=== PATIENT | male | born 1980 | race Caucasian/White ===

== ENCOUNTER 2019-10-03 16:37 | Inpatient (IN) ==
[2019-10-03] MEDS ORDERED: SODIUM CHLORIDE 0.9% 1000ML 1,000 ML IV SCH (17:00)
--- NOTE | 2019-10-03 17:05 | Emergency Department Note ---
Impression & Plan Intentional acetaminophen overdose, Hepatitis C, Drug overdose, Acetaminophen overdose, Transaminitis ED Provider Note NAME: DAVE [id number] JAMEL AGE: 39 SEX: M : 1980 ARRIVES VIA: Walk-In INFORMANT: Patient ED PROVIDER(S): Naga Rich DO CHIEF COMPLAINT: Overdose HPI: Patient is a 39-year-old male who presents the ER following intentional overdose of Tylenol. He notes that he took close to 100 tabs of 500 mg apiece at around 1:00 today. Patient notes that he wants to kill himself secondary to family issues as he notes it is coming up to his anniversary. He denies any other complaints at this time. No exacerbating or remitting factors. No pain at this time. Denies any headache, change in vision, chest pain, shortness of breath, nausea vomiting or diarrhea. No dysuria urgency or frequency. He notes he does have a history of hepatitis C and depression. ROS: See above HPI for pertinent positives & negatives. A total of 10 systems reviewed and were otherwise negative. PAST MEDICAL HISTORY:See Below PAST SURGICAL HISTORY:See Below FAMILY HISTORY:See Below SOCIAL HISTORY:See Below HOME MEDICATIONS:See Below ALLERGIES:See Below VITALS:See Below PHYSICAL EXAMINATION: GENERAL: Sitting up in bed, alert, well appearing, well nourished, no distress, non-toxic EYE EXAM: normal conjunctiva. OROPHARYNX: no exudate, no erythema, lips, buccal mucosa, and tongue normal and mucous membranes are moist NECK: supple, no nuchal rigidity, no adenopathy, non-tender LUNGS: Clear to auscultation. Normal chest wall mechanics HEART: no murmurs, S1 normal and S2 normal ABDOMEN: abdomen soft, non-tender, normo-active bowel sounds, no masses, no re bound or guarding. BACK: Back is symmetrical on inspection and there is no deformity, no midline te nderness, no CVA tenderness. SKIN: no rashes and no bruising UPPER EXTREMITIES: upper extremities are grossly normal. LOWER EXTREMITIES: No pitting edema. NEURO EXAM: Normal sensorium, cranial nerves II-XII grossly intact, normal speech, no gross weakness of arms, no gross weakness of legs. MEDICAL DECISION MAKING: Patient is a 39-year-old male who presents the ER for intentional overdose of Tylenol which occurred per him around 1 PM. IV established blood work was obtained. Labs show no significant leukocytosis or anemia. INR was unremarkable. BMP with a slightly low CO2 at 19. The Rubio was unremarkable. AST and ALT were elevated but actually improved from previous elevations. Lipase was unremarkable. Salicylate was negative. Acetaminophen was si gnificantly elevated at 394. This is a toxic level. [place] and alcohol were negative. Discussed with [place] poison control. Patient was given neck protocol. He did have some vomiting after admission while in the ER. He was given fluids and IV Zofran. There was some hematemesis. The admitting provider was notified. Patient was updated and admitted to the hospital for toxic Tylenol ingestion. Triage Nursing notes reviewed. Prior medical records reviewed Vital Signs: reviewed and remarkable for tachycardic Differential diagnosis: Overdose, toxicologic, infection, hypoglycemia, electrolyte abnormalities, cardiac sources, intracerebral event, neurologic, trauma, as well as other pathologies. ER treatment provided: See below Diagnostics interpreted by me: ECG: Sinus rhythm rate of 96 Left axis No PVCs Normal QTC Poor baseline Cardiac Monitoring: An order was placed for continuous cardiac monitoring. The monitor shows a rate of 98 with sinus rhythm. Laboratory studies: As stated above and show below. Imaging studies: Portable AP upright 1 view of the chest shows questionable groundglass opacities in the bilateral lung Consultation(s): Discussed with Dr. Howard Adames ED COURSE: Procedures: none Critical Care: I have personally spent 45 minutes of critical care time in the direct management of this patient. This includes bedside care, interpretation of diagnostic studies, and testing, discussion with consultants, patient, and family members, and other required patient management activities. This 45 minutes is in excess of all separately billable procedures. Past Med/Surg History Social History Preferred Language: Kyrgyz Current Living Situation: Other Current Living Situation Comment: Longterm Feels Safe at Home: Yes Smoking Status: Current every day smoker Hx Substance Use: No Allergies Allergies Allergy/AdvReac Type Severity Reaction Status Date / Time ceftriaxone [From Rocephin] Allergy Unknown Verified 10/03/19 18:58 Penicillins Allergy Unknown Verified 10/03/19 18:58 Sulfa (Sulfonamide Allergy Unknown Verified 10/03/19 18:58 Antibiotics) Home Meds Home Medications Medication Instructions Recorded Confirmed [place] Citrate 300mg/5ml 5 ml PO BID 10/03/19 10/03/19 duloxetine [Cymbalta] 30 mg PO HS 10/03/19 10/03/19 metoprolol tartrate 50 mg PO BID 10/03/19 10/03/19 olanzapine 15 mg PO HS 10/03/19 10/03/19 Results & Data (ED) Vital Signs Vital Signs - 24 hr 10/03/19 16:41 10/03/19 17:08 10/03/19 17:56 Temperature 36.9 C Temperature Source Oral Pulse Rate 99 H 98 H Pulse Rate [Apical] 91 H Pulse Rhythm Regular Respiratory Rate 18 18 Respiratory Effort / Characteristics Non-Labored Respiratory Depth Normal Blood Pressure 133/80 Blood Pressure [Right Arm] 119/73 Blood Pressure Mean 97 Blood Pressure Mean [Right Arm] 88 Pulse Oximetry 95 95 93 Oxygen Delivery Method Room Air Room Air Room Air Sepsis Recent Fever Within 48 Hours No Sepsis New/Unexplained Change in Mental Status No Sepsis Action Taken by Nursing No Action Required 10/03/19 18:30 10/03/19 19:12 Temperature Temperature Source Pulse Rate Pulse Rate [Apical] 102 H 87 Pulse Rhythm Respiratory Rate 20 18 Respiratory Effort / Characteristics Respiratory Depth Blood Pressure Blood Pressure [Right Arm] 121/75 124/75 Blood Pressure Mean Blood Pressure Mean [Right Arm] 90 91 Pulse Oximetry 95 95 Oxygen Delivery Method Room Air Room Air Sepsis Recent Fever Within 48 Hours Sepsis New/Unexplained Change in Mental Status Sepsis Action Taken by Nursing Laboratory Data Result diagrams: 10/03/19 17:31 10/03/19 17:31 Lab Results 10/03/19 10/03/19 10/03/19 Range/Units 17:31 17:31 17:31 WBC 10.24 (4.8-10.8) K/uL RBC 4.64 L (4.7-6.1) M/uL Hgb 15.2 (14.0-18.0) g/dL Hct 40.6 L (42-52) % MCV 87.5 (80-100) fL MCH 32.8 (25-34) pg MCHC 37.4 H (32-36) g/dL RDW Std Deviation 41.3 (36.4-46.3) fL RDW Coeff of Karl 12.9 (11.5-14.5) % Plt Count 218 (130-400) K/uL MPV 9.7 (7.4-10.4) fL Immature Gran % (Auto) 0.8 % Neut % (Auto) 67.7 % Lymph % (Auto) 20.7 % Mccreary % (Auto) 7.7 % Eos % (Auto) 2.2 % Baso % (Auto) 0.9 % Immature Gran # (Auto) 0.08 H (0.00-0.02) K/uL Neut # (Auto) 6.93 H (1.4-6.5) K/uL Lymph # (Auto) 2.12 (1.2-3.4) K/uL Mccreary # (Auto) 0.79 H (0.11-0.59) K/uL Eos # (Auto) 0.23 (0-0.5) K/uL Baso # (Auto) 0.09 (0-0.2) K/uL PT 11.2 (9.0-12.0) Seconds INR 1.1 (0.9-1.1) Sodium 135 L (136-145) mmol/L Potassium 4.1 (3.5-5.1) mmol/L Chloride 103 (98-107) mmol/L Carbon Dioxide 19 L (21-32) mmol/L Anion Gap 13.0 H (3-11) BUN 15 (7-18) mg/dl Creatinine 1.35 (0.6-1.4) mg/dl Est Cr Clr Drug Dosing 82.2 ml/min Est GFR ( Amer) 77.2 Est GFR (Non-Af Amer) 66.6 BUN/Creatinine Ratio 11.4 (10-20) Glucose 190 H (70-99) mg/dl Calcium 8.8 (8.5-10.1) mg/dl Magnesium 1.9 (1.8-2.4) mg/dl Total Bilirubin 0.9 (0.2-1) mg/dl AST 56 H (15-37) U/L ALT 141 H (12-78) U/L Alkaline Phosphatase 84 (45-117) U/L Total Protein 7.7 (6.4-8.2) gm/dl Albumin 4.3 (3.4-5.0) gm/dl Globulin 3.4 (2.5-4.0) gm/dl Albumin/Globulin Ratio 1.3 (0.9-2) Lipase 112 (73-393) U/L Salicylates (2.8-20) mg/dl Acetaminophen (10-30) ug/ml Ethyl Alcohol mg/dL (0-3) mg/dl 10/03/19 10/03/19 Range/Units 17:31 18:59 WBC (4.8-10.8) K/uL RBC (4.7-6.1) M/uL Hgb (14.0-18.0) g/dL Hct (42-52) % MCV (80-100) fL MCH (25-34) pg MCHC (32-36) g/dL RDW Std Deviation (36.4-46.3) fL RDW Coeff of Karl (11.5-14.5) % Plt Count (130-400) K/uL MPV (7.4-10.4) fL Immature Gran % (Auto) % Neut % (Auto) % Lymph % (Auto) % Mccreary % (Auto) % Eos % (Auto) % Baso % (Auto) % Immature Gran # (Auto) (0.00-0.02) K/uL Neut # (Auto) (1.4-6.5) K/uL Lymph # (Auto) (1.2-3.4) K/uL Mccreary # (Auto) (0.11-0.59) K/uL Eos # (Auto) (0-0.5) K/uL Baso # (Auto) (0-0.2) K/uL PT (9.0-12.0) Seconds INR (0.9-1.1) Sodium (136-145) mmol/L Potassium (3.5-5.1) mmol/L Chloride (98-107) mmol/L Carbon Dioxide (21-32) mmol/L Anion Gap (3-11) BUN (7-18) mg/dl Creatinine (0.6-1.4) mg/dl Est Cr Clr Drug Dosing ml/min Est GFR ( Amer) Est GFR (Non-Af Amer) BUN/Creatinine Ratio (10-20) Glucose (70-99) mg/dl Calcium (8.5-10.1) mg/dl Magnesium (1.8-2.4) mg/dl Total Bilirubin (0.2-1) mg/dl AST (15-37) U/L ALT (12-78) U/L Alkaline Phosphatase (45-117) U/L Total Protein (6.4-8.2) gm/dl Albumin (3.4-5.0) gm/dl Globulin (2.5-4.0) gm/dl Albumin/Globulin Ratio (0.9-2) Lipase (73-393) U/L Salicylates < 1.7 L (2.8-20) mg/dl Acetaminophen 394 H* (10-30) ug/ml Ethyl Alcohol mg/dL < 3.0 (0-3) mg/dl Administered Medications Duloxetine HCl (Cymbalta) 30 mg PO HS SEAN Stop: 11/02/19 21:40 Last Admin: 10/03/19 22:47 Dose: 30 mg Documented by: [id number] Acetylcysteine 4,535 mg/ (Dextrose) 522.675 mls @ 125 mls/hr IV TODAY@1945 ONE; Protocol Stop: 10/03/19 23:55 Last Admin: 10/03/19 20:54 Dose: 125 mls/hr Documented by: [id number] [place] Carbonate ([place] Carbonate) 300 mg PO BID SEAN Stop: 11/02/19 21:40 Last Admin: 10/03/19 22:48 Dose: 300 mg Documented by: [id number] Metoprolol Tartrate (Lopressor) 50 mg PO BID SEAN Stop: 11/02/19 21:40 Last Admin: 10/03/19 22:48 Dose: 50 mg Documented by: [id number] Olanzapine (Zyprexa) 15 mg PO HS SEAN Stop: 11/02/19 21:40 Last Admin: 10/03/19 22:49 Dose: 15 mg Documented by: [id number] Discontinued Medications Sodium Chloride (Nss 1000ml) 1,000 mls @ 999 mls/hr IV .Q1H1M SEAN Stop: 10/03/19 18:00 Last Admin: 10/03/19 17:52 Dose: 999 mls/hr Documented by: [id number] Acetylcysteine 13,600 mg/ (Dextrose) 268 mls @ 268 mls/hr IV NOW ONE; Protocol Stop: 10/03/19 19:44 Last Admin: 10/03/19 19:12 Dose: 268 mls/hr Documented by: [id number] Sodium Chloride (Nss 1000ml) 1,000 mls @ 999 mls/hr IV .Q1H1M ONE Stop: 10/03/19 21:24 Last Admin: 10/03/19 22:44 Dose: 999 mls/hr Documented by: [id number] Promethazine HCl (Phenergan) 6.25 mg in 50.25 mls @ 201 mls/hr IV NOW STA Stop: 10/03/19 20:40 Last Admin: 10/03/19 21:15 Dose: Not Given Documented by: [id number] Ondansetron HCl (Zofran) 4 mg IV NOW STA Stop: 10/03/19 18:37 Last Admin: 10/03/19 18:43 Dose: 4 mg Documented by: [id number] Ondansetron HCl (Zofran) 4 mg IV NOW STA Stop: 10/03/19 20:25 Last Admin: 10/03/19 20:37 Dose: 4 mg Documented by: [id number] Promethazine HCl (Phenergan) 25 mg WI NOW STA Stop: 10/03/19 20:54 Last Admin: 10/03/19 21:14 Dose: 25 mg Documented by: [id number] Discharge Plan Visit Data *Final* Discharge Date/Time: 10/03/19 21:08 Chief Complaint: Overdose (Intentional) Stated Complaint: OVERDOSE ED Provider: Naga Rich Discharge Problem: Intentional acetaminophen overdose, Hepatitis C, Drug overdose, Acetaminophen overdose, Transaminitis Patient Disposition: Admitted As Inpatient Discharge Instructions Interventions: ED Discharge Assessment Last Done: 10/03/19 21:08 Discharge Problem: Intentional acetaminophen overdose Qualifiers: Encounter type: initial encounter Qualified Code(s): T39.1X2A - Poisoning by 4- Aminophenol derivatives, intentional self-harm, initial encounter Hepatitis C Qualifiers: Viral hepatitis chronicity: unspecified Hepatic coma status: without hepatic coma Qualified Code(s): B19.20 - Unspecified viral hepatitis C without hepatic coma Drug overdose Qualifiers: Encounter type: initial encounter Injury intent: undetermined intent Qualified Code(s): T50.904A - Poisoning by unspecified drugs, medicaments and biological substances, undetermined, initial encounter Acetaminophen overdose Qualifiers: Encounter type: initial encounter Injury intent: undetermined intent Qualified Code(s): T39.1X4A - Poisoning by 4-Aminophenol derivatives, undetermined, initial encounter
[2019-10-03 17:49] LABS: Basophils # (auto) 0.09 K/uL (0-0.2); Basophils % (auto) 0.9 %; Eosinophils # (auto) 0.23 K/uL (0-0.5); Eosinophils % (auto) 2.2 %; Hematocrit (blood only) 40.6 % (42-52); Hemoglobin 15.2 g/dL (14.0-18.0); Immature Granulocytes # (auto) 0.08 K/uL (0.00-0.02); Immature Granulocytes % (auto) 0.8 %; Lymphocytes # (auto) 2.12 K/uL (1.2-3.4); Lymphocytes % (auto) 20.7 %; Mean Corpuscular Hemoglobin 32.8 pg (25-34); Mean Corpuscular Hgb Conc 37.4 g/dL (32-36); Mean Corpuscular Volume 87.5 fL (80-100); Mean Platelet Volume 9.7 fL (7.4-10.4); Monocytes # (auto) 0.79 K/uL (0.11-0.59); Monocytes % (auto) 7.7 %; Neutrophils # (auto) 6.93 K/uL (1.4-6.5); Neutrophils % (auto) 67.7 %; Platelet Count 218 K/uL (130-400); RDW Coefficient of Variation 12.9 % (11.5-14.5); RDW Standard Deviation 41.3 fL (36.4-46.3); Red Blood Count 4.64 M/uL (4.7-6.1); White Blood Count 10.24 K/uL (4.8-10.8)
[2019-10-03 17:57] LABS: INR 1.1 (0.9-1.1); Prothrombin Time 11.2 Seconds (9.0-12.0)
--- NOTE | 2019-10-03 17:59 | XRay Report ---
SINGLE VIEW CHEST CLINICAL HISTORY: Overdose. FINDINGS: An AP, portable, upright chest radiograph is compared to study dated 03/01/2019 and correla dimitris with abdominal CT dated 03/02/2019. The cardiomediastinal silhouette is unremarkable. Patchy airs pace opacities are seen at both lung bases. No large pleural effusion is identified. There is a 1.3 c m round pulmonary nodule noted in the left lower lung. No pneumothorax is seen. The bony thorax is gr ossly intact. IMPRESSION: 1. There is patchy bibasilar airspace opacities. This could represent atelectasis and/or pneumonia/as piration pneumonitis. Radiographic follow-up to resolution is recommended. 2. A 1.3 cm round nodule projects over the left lower lung. Follow-up with a nonemergent chest CT is recommended for further assessment. ACT 112: Negative or not required by law. Electronically signed by: Irving Gordon M.D. 10/03/2019 5:58 PM
[2019-10-03 18:05] LABS: Albumin Level 4.3 gm/dl (3.4-5.0); BUN Creatinine Ratio 11.4 (10-20); Calcium 8.8 mg/dl (8.5-10.1); Creatinine Clr Calc Pharmacy 82.2 ml/min; Est GFR (African American) 77.2; Est GFR (Non-African American) 66.6; Magnesium 1.9 mg/dl (1.8-2.4); Potassium 4.1 mmol/L (3.5-5.1)
[2019-10-03 18:07] LABS: Albumin Globulin Ratio 1.3 (0.9-2); Bilirubin,Total 0.9 mg/dl (0.2-1); Globulin 3.4 gm/dl (2.5-4.0); Total Protein 7.7 gm/dl (6.4-8.2)
[2019-10-03] MEDS ORDERED: ONDANSETRON INJ 2 MG/ML 2 ML VIAL IV STA ×2 (18:36→20:24)
[2019-10-03 18:43] LABS: Acetaminophen 394 ug/ml (10-30); Salicylate < 1.7 mg/dl (2.8-20)
[2019-10-03] MEDS ORDERED: AcetylCYSTEINE IV 21 HR REGIMEN (>40KG) IV STA (18:44)
[2019-10-03] MEDS ORDERED: ACETYLCYSTEINE IV ONE ×3 (18:45→23:44)
[2019-10-03] MEDS ORDERED: DEXTROSE 5% IV ONE ×3 (18:45→23:44)
--- NOTE | 2019-10-03 20:03 | History & Physical Report ---
Date of Service October 03, 2019 Assessment & Plan (1) Intentional acetaminophen overdose: Manny Lora is a 39-year-old male with past medical history significant for previous suicide attempts with acetaminophen, hepatitis C from IV drug abuse; who presents to the emergency department from local correctional facility, following ingestion of 100 tablets of 500 mg Tylenol at about 1300 today (10/02) Intentional acetaminophen overdose: - received 100 tablets from care home commissary earlier today; previous suicide attempt with acetaminophen overdose in 2019 - Acetaminophen level on admission 394 - Poison control contacted: recommended 20 hours of NAC with monitoring of Acetaminophen level and liver function, after first 4 hour dose - NAC protocol started at 1912 this evening - INR 1.1 on admission, AST 56, ALT 141 - patient consented for PICC/Central line given poor access from h/o IV drug abuse - IV access lost from 2119 to 2229, no acetadote given during that time; will recheck acetaminophen level, LFTs, and INR in AM for continued trending - IV zofran and AK promethazine available for maintained N/V - one-to-one suicide check/precautions Diet: regular diet DVT ppx: deferred at this time Code Status: Full code History of Present Illness Primary Care Provider: RADHA Castillo Manny Lora is a 39-year-old male with past medical history significant for previous suicide attempts with acetaminophen, hepatitis C from IV drug abuse; who presents to the emergency department from local correctional facility, following ingestion of 100 tablets of 500 mg Tylenol at about 1300 today (10/02), he did this in attempt to kill himself secondary to current family issues with an upcoming anniversary worsening his mood. Of note this is the second attempt at utilization of acetaminophen for an overdose, last time being February 2019, at that time he presented to the emergency department here at [facility] at that time he had acetaminophen level of 533 and was subsequently transferred to [facility] for observation. He states that he took no other medications in the last 24 hours in order to overdose, and no other recreational or nonmedical or illicit drugs, per Per guards from correctional facility patient alerted them of the attempted overdose approximately 1500 today, further discussions with his cellmate he did not take any other medications nor did the cellmate note that he had taken any acetaminophen. Since that time he has not had any nausea, vomiting, abdominal pain, diarrhea, changes in vision, changes in sensation of upper or lower extremities. After being evaluated in ED, became nauseated and vomited several times, complained of some mild abdominal tenderness Allergies Allergy/AdvReac Type Severity Reaction Status Date / Time ceftriaxone [From Rocephin] Allergy Unknown Verified 10/03/19 18:58 Penicillins Allergy Unknown Verified 10/03/19 18:58 Sulfa (Sulfonamide Allergy Unknown Verified 10/03/19 18:58 Antibiotics) Home Medications Home Medications Medication Instructions Recorded Confirmed Type [place] Citrate 300mg/5ml 5 ml PO BID 10/03/19 10/03/19 History duloxetine [Cymbalta] 30 mg PO HS 10/03/19 10/03/19 History metoprolol tartrate 50 mg PO BID 10/03/19 10/03/19 History olanzapine 15 mg PO HS 10/03/19 10/03/19 History Past Med/Surg History Medical History (Updated 10/04/19 @ 16:26 by Kacey Starr MD) Hepatitis C (Chronic) Pulmonary nodule Surgical History No pertinent past surgical history Social History Preferred Language: East Timorese Current Living Situation: Other Current Living Situation Comment: Long Term Feels Safe at Home: Yes Smoking Status: Current every day smoker Hx Substance Use: No Review of Systems Review of Systems: All systems reviewed & are unremarkable except as noted in HPI & below Physical Exam Constitutional: WD/WN, vitals as above Eyes: PERRL, conjunctivae normal, anicteric sclerae ENMT: external ear and nose normal, oropharynx normal Neck: normal visual inspection Respiratory: normal respiratory effort, lungs clear to auscultation Cardiovascular: Rate/Rhythm: regular rate and regular rhythm Heart Sounds: normal S1 and normal S2; no gallop, no murmur and no cardiac rub Vessels: no JVD Extremities: no edema Gastrointestinal (Abdomen): Inspection/Auscultation: abdomen normal to inspect ion and normal bowel sounds; abdomen not distended Percussion/Palpation: + abdomen tender (epigastric) and abdomen soft; no guarding Musculoskeletal: no cyanosis or clubbing, extremities motor strength 5/5 Neurologic: patellar DTR's 2+ bilat, sensation intact CN's II-XI intact bilaterally Psychiatric: Orientation: alert and oriented x 3 Mood: + depressed mood Insight: + poor insight Judgement: + poor judgement Genitourinary: no CVA tenderness Lymphatic: no cervical or axillary lymphadenopathy Results & Data Results & Data ([facility]) Vital Signs (Past 12 Hours) Vital Signs Temp Pulse Pulse Resp BP BP Pulse Ox 10/03/19 19:12 87 18 124/75 95 10/03/19 18:30 102 H 20 121/75 95 10/03/19 17:56 91 H 18 119/73 93 10/03/19 17:08 98 H 95 10/03/19 16:41 36.9 C 99 H 18 133/80 95 Laboratory Results 10/03/19 10/03/19 10/03/19 Range/Units 18:59 17:31 17:31 WBC (4.8-10.8) K/uL RBC (4.7-6.1) M/uL Hgb (14.0-18.0) g/dL Hct (42-52) % MCV (80-100) fL MCH (25-34) pg MCHC (32-36) g/dL RDW Std Deviation (36.4-46.3) fL RDW Coeff of Karl (11.5-14.5) % Plt Count (130-400) K/uL MPV (7.4-10.4) fL Immature Gran % (Auto) % Neut % (Auto) % Lymph % (Auto) % Crowley % (Auto) % Eos % (Auto) % Baso % (Auto) % Immature Gran # (Auto) (0.00-0.02) K/uL Neut # (Auto) (1.4-6.5) K/uL Lymph # (Auto) (1.2-3.4) K/uL Crowley # (Auto) (0.11-0.59) K/uL Eos # (Auto) (0-0.5) K/uL Baso # (Auto) (0-0.2) K/uL PT (9.0-12.0) Seconds INR (0.9-1.1) Sodium 135 L (136-145) mmol/L Potassium 4.1 (3.5-5.1) mmol/L Chloride 103 (98-107) mmol/L Carbon Dioxide 19 L (21-32) mmol/L Anion Gap 13.0 H (3-11) BUN 15 (7-18) mg/dl Creatinine 1.35 (0.6-1.4) mg/dl Est Cr Clr Drug Dosing 82.2 ml/min Est GFR ( Amer) 77.2 Est GFR (Non-Af Amer) 66.6 BUN/Creatinine Ratio 11.4 (10-20) Glucose 190 H (70-99) mg/dl Calcium 8.8 (8.5-10.1) mg/dl Magnesium 1.9 (1.8-2.4) mg/dl Total Bilirubin 0.9 (0.2-1) mg/dl AST 56 H (15-37) U/L ALT 141 H (12-78) U/L Alkaline Phosphatase 84 (45-117) U/L Total Protein 7.7 (6.4-8.2) gm/dl Albumin 4.3 (3.4-5.0) gm/dl Globulin 3.4 (2.5-4.0) gm/dl Albumin/Globulin Ratio 1.3 (0.9-2) Lipase 112 (73-393) U/L Salicylates < 1.7 L (2.8-20) mg/dl Acetaminophen 394 H* (10-30) ug/ml Ethyl Alcohol mg/dL < 3.0 (0-3) mg/dl 10/03/19 10/03/19 Range/Units 17:31 17:31 WBC 10.24 (4.8-10.8) K/uL RBC 4.64 L (4.7-6.1) M/uL Hgb 15.2 (14.0-18.0) g/dL Hct 40.6 L (42-52) % MCV 87.5 (80-100) fL MCH 32.8 (25-34) pg MCHC 37.4 H (32-36) g/dL RDW Std Deviation 41.3 (36.4-46.3) fL RDW Coeff of Karl 12.9 (11.5-14.5) % Plt Count 218 (130-400) K/uL MPV 9.7 (7.4-10.4) fL Immature Gran % (Auto) 0.8 % Neut % (Auto) 67.7 % Lymph % (Auto) 20.7 % Crowley % (Auto) 7.7 % Eos % (Auto) 2.2 % Baso % (Auto) 0.9 % Immature Gran # (Auto) 0.08 H (0.00-0.02) K/uL Neut # (Auto) 6.93 H (1.4-6.5) K/uL Lymph # (Auto) 2.12 (1.2-3.4) K/uL Crowley # (Auto) 0.79 H (0.11-0.59) K/uL Eos # (Auto) 0.23 (0-0.5) K/uL Baso # (Auto) 0.09 (0-0.2) K/uL PT 11.2 (9.0-12.0) Seconds INR 1.1 (0.9-1.1) Sodium (136-145) mmol/L Potassium (3.5-5.1) mmol/L Chloride (98-107) mmol/L Carbon Dioxide (21-32) mmol/L Anion Gap (3-11) BUN (7-18) mg/dl Creatinine (0.6-1.4) mg/dl Est Cr Clr Drug Dosing ml/min Est GFR ( Amer) Est GFR (Non-Af Amer) BUN/Creatinine Ratio (10-20) Glucose (70-99) mg/dl Calcium (8.5-10.1) mg/dl Magnesium (1.8-2.4) mg/dl Total Bilirubin (0.2-1) mg/dl AST (15-37) U/L ALT (12-78) U/L Alkaline Phosphatase (45-117) U/L Total Protein (6.4-8.2) gm/dl Albumin (3.4-5.0) gm/dl Globulin (2.5-4.0) gm/dl Albumin/Globulin Ratio (0.9-2) Lipase (73-393) U/L Salicylates (2.8-20) mg/dl Acetaminophen (10-30) ug/ml Ethyl Alcohol mg/dL (0-3) mg/dl Medications Administered Current Inpatient Medications Acetylcysteine 4,535 mg/ (Dextrose) 522.675 mls @ 125 mls/hr IV TODAY@1945 ONE; Protocol Stop: 10/03/19 23:55 Acetylcysteine 9,070 mg/ (Dextrose) 1,045.35 mls @ 62.5 mls/hr IV TODAY@2344 ONE; Protocol Stop: 10/04/19 16:27 Supervising Physician Co-Signing Physician Notes Attending addendum: I have physically seen this patient, have supervised the medical residents activities, and agree with the H&P unless as otherwise noted. Assessment and Plan: Intentional acetaminophen overdose/major depressive disorder- Admit to monitored bed. Acetaminophen level 394 upon admission. Continue Acetadote along with serial laboratories with timing per recommendations of poison control. Zofran 4 mg IV every 6 hours as needed. Famotidine 20 mg IV every 12 hours. Consult psychiatry. One-to-one suicide precautions. Hold Cymbalta, lithium and olanzapine until resumption ordered by psychiatry. Remaining orders and notations as noted. Resident Activity Tracking Resident Involvement: Resident Care Provided Care Provided: Adult Hospital Medicine
[2019-10-03] MEDS ORDERED: SODIUM CHLORIDE 0.9% 1000ML 1,000 ML IV ONE (20:24)
[2019-10-03] MEDS ORDERED: PROMETHAZINE 6.25 MG/50.25 ML BAG IV STA (20:26)
[2019-10-03] MEDS ORDERED: PROMETHAZINE HCL 25 MG SUPP PR STA (20:53)
[2019-10-03] MEDS ORDERED: POLYETHYLENE (MIRALAX) 17 GM PACK PO PRN (21:41)
[2019-10-03] MEDS ORDERED: ALUMINUM/MAGNESIUM SUSP 30 ML UDC PO PRN (21:41)
[2019-10-03] MEDS ORDERED: MAGNESIUM HYDROXIDE SUSP 30 ML UDC PO PRN (21:41)
[2019-10-03] MEDS ORDERED: ONDANSETRON INJ 2 MG/ML 2 ML VIAL IV PRN (21:41)
[2019-10-03] MEDS: DULOXETINE HCL 30 MG CAP PO SCH (22:47)
[2019-10-03] MEDS: METOPROLOL TARTRATE 50 MG TAB PO SCH (22:48)
[2019-10-03] MEDS: LITHIUM CARBONATE 300 MG TAB PO SCH (22:48)
[2019-10-03] MEDS: OLANZapine 5 MG TABLET PO SCH (22:49)
[2019-10-03 23:12] LABS: INR 1.2 (0.9-1.1); Prothrombin Time 12.4 Seconds (9.0-12.0)
[2019-10-03 23:22] LABS: BUN Creatinine Ratio 8.9 (10-20); Calcium 8.2 mg/dl (8.5-10.1); Est GFR (African American) 66.9; Est GFR (Non-African American) 57.7; Potassium 3.9 mmol/L (3.5-5.1)
[2019-10-03 23:25] LABS: Albumin Globulin Ratio 1.1 (0.9-2); Bilirubin,Total 0.8 mg/dl (0.2-1); Globulin 3.7 gm/dl (2.5-4.0); Total Protein 7.7 gm/dl (6.4-8.2)
[2019-10-04 05:11] LABS: Basophils # (auto) 0.02 K/uL (0-0.2); Basophils % (auto) 0.1 %; Eosinophils # (auto) 0.01 K/uL (0-0.5); Eosinophils % (auto) 0.1 %; Hematocrit (blood only) 39.9 % (42-52); Hemoglobin 14.4 g/dL (14.0-18.0); Immature Granulocytes # (auto) 0.03 K/uL (0.00-0.02); Immature Granulocytes % (auto) 0.2 %; Lymphocytes # (auto) 1.82 K/uL (1.2-3.4); Lymphocytes % (auto) 13.6 %; Mean Corpuscular Hemoglobin 30.9 pg (25-34); Mean Corpuscular Hgb Conc 36.1 g/dL (32-36); Mean Corpuscular Volume 85.6 fL (80-100); Mean Platelet Volume 9.6 fL (7.4-10.4); Neutrophils # (auto) 10.73 K/uL (1.4-6.5); Platelet Count 267 K/uL (130-400); RDW Standard Deviation 40.4 fL (36.4-46.3); Red Blood Count 4.66 M/uL (4.7-6.1); White Blood Count 13.41 K/uL (4.8-10.8)
[2019-10-04 05:18] LABS: INR 1.2 (0.9-1.1); Prothrombin Time 12.6 Seconds (9.0-12.0)
[2019-10-04 05:34] LABS: Albumin Level 3.8 gm/dl (3.4-5.0); BUN Creatinine Ratio 10.2 (10-20); Calcium 8.1 mg/dl (8.5-10.1); Creatinine Clr Calc Pharmacy 94.1 ml/min; Est GFR (African American) 90.8; Est GFR (Non-African American) 78.4; Potassium 3.4 mmol/L (3.5-5.1)
[2019-10-04 05:37] LABS: Albumin Globulin Ratio 1.1 (0.9-2); Globulin 3.4 gm/dl (2.5-4.0); Phosphorus 2.9 mg/dl (2.5-4.9); Total Protein 7.2 gm/dl (6.4-8.2)
--- NOTE | 2019-10-04 07:38 | XRay Report ---
XR chest 1V portable HISTORY: vomiting blood COMPARISON: Chest 10/03/2019. FINDINGS: No pneumothorax. No pleural effusions. Left basilar linear density. The heart is normal in size. The right lung is clear. No evidence for pulmonary edema. There is an 11 mm nodule within the l eft midlung zone. A right PICC terminates in the distal SVC. The bibasilar airspace opacities have im proved. IMPRESSION: 1. A left basilar linear density. This favors subsegmental atelectasis. A pneumonia could also have a similar appearance in the appropriate clinical setting. 2. Overall, the bibasilar airspace opacities have improved. 3. An 11 mm left midlung zone nodule is again noted. This favors a nipple shadow. However, dedicated PA and lateral views of the chest with nipple markers is recommended to exclude the less likely possi bility pulmonary nodule. ACT 112: Negative or not required by law. Electronically signed by: Jacques Garzon M.D. 10/04/2019 7:36 AM
[2019-10-04] MEDS: METOPROLOL TARTRATE 50 MG TAB PO SCH ×2 (07:39→20:38)
[2019-10-04] MEDS: LITHIUM CARBONATE 300 MG TAB PO SCH ×2 (07:39→20:37)
[2019-10-04] MEDS ORDERED: POTASSIUM CHLORIDE 20 MEQ TABCR PO STA (08:10)
--- NOTE | 2019-10-04 11:06 | Hospitalist Progress Note ---
Date of Service October 04, 2019 Assessment & Plan (1) Intentional acetaminophen overdose: Manny Lora is a 39-year-old male with past medical history significant for previous suicide attempts with acetaminophen, hepatitis C from IV drug abuse; who presents to the emergency department from local correctional facility, following ingestion of 100 tablets of 500 mg Tylenol intentionally with intent to commit suicide. Started on NAC protocol and APAP level trending downward, LFTs remain mildly elevated but trending downward. INR 1.2, no evidence of significant liver dysfunction He is denying abd pain, no further N/V and is tolerating a diet - Acetaminophen level on admission 394 -continue NAC and will extend another maintenance bag likely for 16 more hours overnight tonight given high levels -follow serial APAP and LFTs, INR, CBC, BMP - continue one-to-one suicide check/precautions and will need [facility] back at [facility] after medically cleared (2) Transaminitis: as above, improving, secondary to APAP overdose Follow LFTs in AM (3) Hepatitis C: chronic treated with interferon in the past -f/u with PCP (4) Nausea & vomiting: resolved secondary to overdose antiemetics prn return can tolerate regular diet (5) Pulmonary nodule: seen on CXR here -Rad recommends Chest CT-will get while here tomorrow (6) Hypokalemia: replace and follow BMP (7) HERMES (acute kidney injury): Director Payer up on admission secondary to volume depletion now improved back to normal (8) Metabolic acidosis: On admission secondary to overdose and dehydration, now resolved follow BMP (9) Abnormal chest xray: as above, pulm nodule and bibasilar patchy opacities-could be atelectasis or aspiration from vomiting but no fevers -no abx needed at this time -chest CT as above (10) Major depressive disorder: continue lithium, continue olazapine , duloxetine -suspect Bipolar d/o f/u with Psych at [facility] (11) HTN (hypertension), benign: stable -continue metoprolol (12) DVT prophylaxis: add heparin SQ Dispo-continued stay on PCU Eventually back to [facility] Admission and Anticipated Discharge Date Admission Date: October 03, 2019 Subjective Pt feels fine this AM. Denies any further N/V, no abd pain, last BM yesterday. He ate eggs today and is drinking fluids. Denies headache, chest pain, SOB. Admits to intentionally taking 100 tabs of Tylenol and admits to feeling depressed. He does not know of a diagnosis of bipolar disorder but admits he is on lithium he thinks for depression Tele with NSR Review of Systems Review of Systems: All systems reviewed & are unremarkable except as noted in HPI & below Physical Exam Constitutional: WD/WN, vitals as above Eyes: + anicteric sclerae Neck: trachea midline, no thyromegaly Respiratory: normal respiratory effort, lungs clear to auscultation Cardiovascular: RRR, no murmur, no edema Chest (Breasts): Chest: normal inspection of chest Gastrointestinal (Abdomen): normal bowel sounds, soft, nontender, no he patosplenomegaly Musculoskeletal: Extremities: extremities normal to inspection; no cyanosis and no clubbing Skin: no rashes, warm and dry Neurologic: moves all extremities and awake; no focal motor deficits Psychiatric: Orientation: alert, oriented x 3 and cooperative Eye Contact: good eye contact Speech: normal rate/rhythm/volume of speech Affect: + flat affect Mood: + depressed mood Lymphatic: no lymphedema Results & Data Results & Data ([facility]) Vital Signs (Past 12 Hours) Vital Signs Temp Pulse Pulse Resp BP Pulse Ox 10/04/19 08:00 73 10/04/19 07:33 36.9 C 76 16 115/73 94 10/04/19 04:19 36.6 C 69 17 122/81 95 10/04/19 01:12 67 10/03/19 23:25 36.4 C L 76 19 122/74 95 Laboratory Results 10/04/19 10/04/19 10/04/19 Range/Units 04:37 04:37 04:37 WBC (4.8-10.8) K/uL RBC (4.7-6.1) M/uL Hgb (14.0-18.0) g/dL Hct (42-52) % MCV (80-100) fL MCH (25-34) pg MCHC (32-36) g/dL RDW Std Deviation (36.4-46.3) fL RDW Coeff of Karl (11.5-14.5) % Plt Count (130-400) K/uL MPV (7.4-10.4) fL Immature Gran % (Auto) % Neut % (Auto) % Lymph % (Auto) % [place] % (Auto) % Eos % (Auto) % Baso % (Auto) % Immature Gran # (Auto) (0.00-0.02) K/uL Neut # (Auto) (1.4-6.5) K/uL Lymph # (Auto) (1.2-3.4) K/uL [place] # (Auto) (0.11-0.59) K/uL Eos # (Auto) (0-0.5) K/uL Baso # (Auto) (0-0.2) K/uL PT 12.6 H (9.0-12.0) Seconds INR 1.2 H (0.9-1.1) Sodium 138 (136-145) mmol/L Potassium 3.4 L (3.5-5.1) mmol/L Chloride 105 (98-107) mmol/L Carbon Dioxide 22 (21-32) mmol/L Anion Gap 11.0 (3-11) BUN 12 (7-18) mg/dl Creatinine 1.18 D (0.6-1.4) mg/dl Est Cr Clr Drug Dosing 94.1 ml/min Est GFR ( Amer) 90.8 Est GFR (Non-Af Amer) 78.4 BUN/Creatinine Ratio 10.2 (10-20) Glucose 135 H (70-99) mg/dl Calcium 8.1 L (8.5-10.1) mg/dl Phosphorus 2.9 (2.5-4.9) mg/dl Magnesium 2.0 (1.8-2.4) mg/dl Total Bilirubin 1.0 (0.2-1) mg/dl AST 48 H (15-37) U/L ALT 140 H (12-78) U/L Alkaline Phosphatase 66 (45-117) U/L Total Protein 7.2 (6.4-8.2) gm/dl Albumin 3.8 (3.4-5.0) gm/dl Globulin 3.4 (2.5-4.0) gm/dl Albumin/Globulin Ratio 1.1 (0.9-2) Lipase (73-393) U/L Nasal Screen MRSA (PCR) (Negative) Salicylates (2.8-20) mg/dl Acetaminophen 150 H (10-30) ug/ml [place] (0.6-1.2) mmol/L Ethyl Alcohol mg/dL (0-3) mg/dl 10/04/19 10/03/19 10/03/19 Range/Units 04:37 Unknown 22:55 WBC 13.41 H (4.8-10.8) K/uL RBC 4.66 L (4.7-6.1) M/uL Hgb 14.4 (14.0-18.0) g/dL Hct 39.9 L (42-52) % MCV 85.6 (80-100) fL MCH 30.9 (25-34) pg MCHC 36.1 H (32-36) g/dL RDW Std Deviation 40.4 (36.4-46.3) fL RDW Coeff of Karl 13.0 (11.5-14.5) % Plt Count 267 (130-400) K/uL MPV 9.6 (7.4-10.4) fL Immature Gran % (Auto) 0.2 % Neut % (Auto) 80.0 % Lymph % (Auto) 13.6 % [place] % (Auto) 6.0 % Eos % (Auto) 0.1 % Baso % (Auto) 0.1 % Immature Gran # (Auto) 0.03 H (0.00-0.02) K/uL Neut # (Auto) 10.73 H (1.4-6.5) K/uL Lymph # (Auto) 1.82 (1.2-3.4) K/uL [place] # (Auto) 0.80 H (0.11-0.59) K/uL Eos # (Auto) 0.01 (0-0.5) K/uL Baso # (Auto) 0.02 (0-0.2) K/uL PT 12.4 H (9.0-12.0) Seconds INR 1.2 H (0.9-1.1) Sodium (136-145) mmol/L Potassium (3.5-5.1) mmol/L Chloride (98-107) mmol/L Carbon Dioxide (21-32) mmol/L Anion Gap (3-11) BUN (7-18) mg/dl Creatinine (0.6-1.4) mg/dl Est Cr Clr Drug Dosing ml/min Est GFR ( Amer) Est GFR (Non-Af Amer) BUN/Creatinine Ratio (10-20) Glucose (70-99) mg/dl Calcium (8.5-10.1) mg/dl Phosphorus (2.5-4.9) mg/dl Magnesium (1.8-2.4) mg/dl Total Bilirubin (0.2-1) mg/dl AST (15-37) U/L ALT (12-78) U/L Alkaline Phosphatase (45-117) U/L Total Protein (6.4-8.2) gm/dl Albumin (3.4-5.0) gm/dl Globulin (2.5-4.0) gm/dl Albumin/Globulin Ratio (0.9-2) Lipase (73-393) U/L Nasal Screen MRSA (PCR) Negative (Negative) Salicylates (2.8-20) mg/dl Acetaminophen (10-30) ug/ml [place] (0.6-1.2) mmol/L Ethyl Alcohol mg/dL (0-3) mg/dl 10/03/19 10/03/19 10/03/19 Range/Units 22:55 22:55 21:44 WBC (4.8-10.8) K/uL RBC (4.7-6.1) M/uL Hgb (14.0-18.0) g/dL Hct (42-52) % MCV (80-100) fL MCH (25-34) pg MCHC (32-36) g/dL RDW Std Deviation (36.4-46.3) fL RDW Coeff of Karl (11.5-14.5) % Plt Count (130-400) K/uL MPV (7.4-10.4) fL Immature Gran % (Auto) % Neut % (Auto) % Lymph % (Auto) % [place] % (Auto) % Eos % (Auto) % Baso % (Auto) % Immature Gran # (Auto) (0.00-0.02) K/uL Neut # (Auto) (1.4-6.5) K/uL Lymph # (Auto) (1.2-3.4) K/uL [place] # (Auto) (0.11-0.59) K/uL Eos # (Auto) (0-0.5) K/uL Baso # (Auto) (0-0.2) K/uL PT (9.0-12.0) Seconds INR (0.9-1.1) Sodium 139 (136-145) mmol/L Potassium 3.9 (3.5-5.1) mmol/L Chloride 102 (98-107) mmol/L Carbon Dioxide 20 L (21-32) mmol/L Anion Gap 17.0 H (3-11) BUN 14 (7-18) mg/dl Creatinine 1.52 H (0.6-1.4) mg/dl Est Cr Clr Drug Dosing 73.0 ml/min Est GFR ( Amer) 66.9 Est GFR (Non-Af Amer) 57.7 BUN/Creatinine Ratio 8.9 L (10-20) Glucose 245 H (70-99) mg/dl Calcium 8.2 L (8.5-10.1) mg/dl Phosphorus (2.5-4.9) mg/dl Magnesium (1.8-2.4) mg/dl Total Bilirubin 0.8 (0.2-1) mg/dl AST 52 H (15-37) U/L ALT 150 H (12-78) U/L Alkaline Phosphatase 73 (45-117) U/L Total Protein 7.7 (6.4-8.2) gm/dl Albumin 4.0 (3.4-5.0) gm/dl Globulin 3.7 (2.5-4.0) gm/dl Albumin/Globulin Ratio 1.1 (0.9-2) Lipase (73-393) U/L Nasal Screen MRSA (PCR) (Negative) Salicylates (2.8-20) mg/dl Acetaminophen 345 H* (10-30) ug/ml [place] 0.4 L (0.6-1.2) mmol/L Ethyl Alcohol mg/dL (0-3) mg/dl 10/03/19 10/03/19 10/03/19 Range/Units 18:59 17:31 17:31 WBC (4.8-10.8) K/uL RBC (4.7-6.1) M/uL Hgb (14.0-18.0) g/dL Hct (42-52) % MCV (80-100) fL MCH (25-34) pg MCHC (32-36) g/dL RDW Std Deviation (36.4-46.3) fL RDW Coeff of Karl (11.5-14.5) % Plt Count (130-400) K/uL MPV (7.4-10.4) fL Immature Gran % (Auto) % Neut % (Auto) % Lymph % (Auto) % [place] % (Auto) % Eos % (Auto) % Baso % (Auto) % Immature Gran # (Auto) (0.00-0.02) K/uL Neut # (Auto) (1.4-6.5) K/uL Lymph # (Auto) (1.2-3.4) K/uL [place] # (Auto) (0.11-0.59) K/uL Eos # (Auto) (0-0.5) K/uL Baso # (Auto) (0-0.2) K/uL PT (9.0-12.0) Seconds INR (0.9-1.1) Sodium 135 L (136-145) mmol/L Potassium 4.1 (3.5-5.1) mmol/L Chloride 103 (98-107) mmol/L Carbon Dioxide 19 L (21-32) mmol/L Anion Gap 13.0 H (3-11) BUN 15 (7-18) mg/dl Creatinine 1.35 (0.6-1.4) mg/dl Est Cr Clr Drug Dosing 82.2 ml/min Est GFR ( Amer) 77.2 Est GFR (Non-Af Amer) 66.6 BUN/Creatinine Ratio 11.4 (10-20) Glucose 190 H (70-99) mg/dl Calcium 8.8 (8.5-10.1) mg/dl Phosphorus (2.5-4.9) mg/dl Magnesium 1.9 (1.8-2.4) mg/dl Total Bilirubin 0.9 (0.2-1) mg/dl AST 56 H (15-37) U/L ALT 141 H (12-78) U/L Alkaline Phosphatase 84 (45-117) U/L Total Protein 7.7 (6.4-8.2) gm/dl Albumin 4.3 (3.4-5.0) gm/dl Globulin 3.4 (2.5-4.0) gm/dl Albumin/Globulin Ratio 1.3 (0.9-2) Lipase 112 (73-393) U/L Nasal Screen MRSA (PCR) (Negative) Salicylates < 1.7 L (2.8-20) mg/dl Acetaminophen 394 H* (10-30) ug/ml [place] (0.6-1.2) mmol/L Ethyl Alcohol mg/dL < 3.0 (0-3) mg/dl 10/03/19 10/03/19 Range/Units 17:31 17:31 WBC 10.24 (4.8-10.8) K/uL RBC 4.64 L (4.7-6.1) M/uL Hgb 15.2 (14.0-18.0) g/dL Hct 40.6 L (42-52) % MCV 87.5 (80-100) fL MCH 32.8 (25-34) pg MCHC 37.4 H (32-36) g/dL RDW Std Deviation 41.3 (36.4-46.3) fL RDW Coeff of Karl 12.9 (11.5-14.5) % Plt Count 218 (130-400) K/uL MPV 9.7 (7.4-10.4) fL Immature Gran % (Auto) 0.8 % Neut % (Auto) 67.7 % Lymph % (Auto) 20.7 % [place] % (Auto) 7.7 % Eos % (Auto) 2.2 % Baso % (Auto) 0.9 % Immature Gran # (Auto) 0.08 H (0.00-0.02) K/uL Neut # (Auto) 6.93 H (1.4-6.5) K/uL Lymph # (Auto) 2.12 (1.2-3.4) K/uL [place] # (Auto) 0.79 H (0.11-0.59) K/uL Eos # (Auto) 0.23 (0-0.5) K/uL Baso # (Auto) 0.09 (0-0.2) K/uL PT 11.2 (9.0-12.0) Seconds INR 1.1 (0.9-1.1) Sodium (136-145) mmol/L Potassium (3.5-5.1) mmol/L Chloride (98-107) mmol/L Carbon Dioxide (21-32) mmol/L Anion Gap (3-11) BUN (7-18) mg/dl Creatinine (0.6-1.4) mg/dl Est Cr Clr Drug Dosing ml/min Est GFR ( Amer) Est GFR (Non-Af Amer) BUN/Creatinine Ratio (10-20) Glucose (70-99) mg/dl Calcium (8.5-10.1) mg/dl Phosphorus (2.5-4.9) mg/dl Magnesium (1.8-2.4) mg/dl Total Bilirubin (0.2-1) mg/dl AST (15-37) U/L ALT (12-78) U/L Alkaline Phosphatase (45-117) U/L Total Protein (6.4-8.2) gm/dl Albumin (3.4-5.0) gm/dl Globulin (2.5-4.0) gm/dl Albumin/Globulin Ratio (0.9-2) Lipase (73-393) U/L Nasal Screen MRSA (PCR) (Negative) Salicylates (2.8-20) mg/dl Acetaminophen (10-30) ug/ml [place] (0.6-1.2) mmol/L Ethyl Alcohol mg/dL (0-3) mg/dl PG Care Time/CCT Total # of Minutes Spent Total Time Spent with Patient: Total time spent is greater than 50% in coordination of care (as documented) at patient's floor/unit and/or counseling patient: Coding Level of Care Code 70197 Subseq Hosp Care Lvl 3 Diagnoses Intentional acetaminophen overdose T39.1X2A Encounter type: initial encounter Transaminitis R74.0 Hepatitis C B19.20 Hepatic coma status: without hepatic coma Viral hepatitis chronicity: unspecified Nausea & vomiting R11.2 Pulmonary nodule R91.1 Hypokalemia E87.6 HERMES (acute kidney injury) N17.9 Metabolic acidosis E87.2 Abnormal chest xray R93.89 Major depressive disorder F32.9 HTN (hypertension), benign I10 DVT prophylaxis Z29.9 (1) Hepatitis C Hepatic coma status: without hepatic coma Viral hepatitis chronicity: unspecified Qualified Code(s): B19.20 - Unspecified viral hepatitis C without hepatic coma (2) Intentional acetaminophen overdose Encounter type: initial encounter Qualified Code(s): T39.1X2A - Poisoning by 4-Aminophenol derivatives, intentional self-harm, initial encounter
[2019-10-04 14:37] LABS: INR 1.2 (0.9-1.1); Prothrombin Time 12.5 Seconds (9.0-12.0)
[2019-10-04 14:42] LABS: Amphetamines+Metham, Urine Neg (Neg); Barbiturates, Urine Neg (Neg); Benzodiazepine, Urine Neg (Neg); Cocaine, Urine Neg (Neg); MDMA (Ecstacy), Urine Neg (Neg); Methadone, Urine Neg (Neg); Opiate, Urine Neg (Neg); Phencyclidine, Urine Neg (Neg)
[2019-10-04 14:57] LABS: Albumin Level 3.7 gm/dl (3.4-5.0); Bilirubin Direct 0.2 mg/dl (0-0.2); Calcium 8.1 mg/dl (8.5-10.1); Est GFR (African American) 87.2; Est GFR (Non-African American) 75.3
[2019-10-04 14:59] LABS: Bilirubin,Total 0.8 mg/dl (0.2-1)
--- NOTE | 2019-10-04 16:03 | Electrocardiogram Report ---
Test Reason : Blood Pressure : / mmHG Vent. Rate : 096 BPM Atrial Rate : 096 BPM P-R Int : 130 ms QRS Dur : 088 ms QT Int : 364 ms P-R-T Axes : 063 -43 029 degrees QTc Int : 459 ms Normal sinus rhythm Left axis deviation Abnormal ECG Confirmed by Jurgen Ernandez ([id number]) on 10/04/2019 4:03:21 PM Referred By: [facility] Confirmed By:Blaine Ernandez
[2019-10-04] MEDS ORDERED: DEXTROSE 5% IV ONE (16:30)
[2019-10-04] MEDS ORDERED: POTASSIUM CHLORIDE / WTR 10 MEQ/100 ML PLCT IV SCH (16:30)
[2019-10-04] MEDS ORDERED: ACETYLCYSTEINE IV ONE (16:30)
[2019-10-04] MEDS ORDERED: POTASSIUM CHLORIDE 20 MEQ TABCR PO ONE (17:21)
[2019-10-04] MEDS: HEPARIN SOD 5,000 UNIT/0.5 ML VIAL SQ SCH (20:37)
[2019-10-04] MEDS: OLANZapine 5 MG TABLET PO SCH (20:37)
[2019-10-04] MEDS: DULOXETINE HCL 30 MG CAP PO SCH (20:37)
--- NOTE | 2019-10-04 22:18 | Billing Data ---
Date of Service October 04, 2019 Coding Level of Care Code 97331 Initial Inpt Care Lvl 3
[2019-10-05 03:49] VITALS: O2SAT 96
[2019-10-05 06:57] LABS: Basophils # (auto) 0.06 K/uL (0-0.2); Basophils % (auto) 0.6 %; Eosinophils # (auto) 0.22 K/uL (0-0.5); Eosinophils % (auto) 2.3 %; Hematocrit (blood only) 42.4 % (42-52); Hemoglobin 14.7 g/dL (14.0-18.0); Immature Granulocytes # (auto) 0.03 K/uL (0.00-0.02); Immature Granulocytes % (auto) 0.3 %; Lymphocytes # (auto) 2.02 K/uL (1.2-3.4); Lymphocytes % (auto) 21.5 %; Mean Corpuscular Hemoglobin 30.8 pg (25-34); Mean Corpuscular Hgb Conc 34.7 g/dL (32-36); Mean Corpuscular Volume 88.7 fL (80-100); Mean Platelet Volume 9.9 fL (7.4-10.4); Monocytes # (auto) 0.82 K/uL (0.11-0.59); Monocytes % (auto) 8.7 %; Neutrophils # (auto) 6.26 K/uL (1.4-6.5); Neutrophils % (auto) 66.6 %; Platelet Count 219 K/uL (130-400); RDW Coefficient of Variation 13.6 % (11.5-14.5); Red Blood Count 4.78 M/uL (4.7-6.1); White Blood Count 9.41 K/uL (4.8-10.8)
[2019-10-05 07:06] LABS: INR 1.2 (0.9-1.1)
[2019-10-05 07:18] LABS: Albumin Level 3.7 gm/dl (3.4-5.0); BUN Creatinine Ratio 9.2 (10-20); Bilirubin Direct 0.1 mg/dl (0-0.2); Bilirubin,Total 0.8 mg/dl (0.2-1); Calcium 8.7 mg/dl (8.5-10.1); Creatinine Clr Calc Pharmacy 133.6 ml/min; Est GFR (Non-African American) 108.7; Magnesium 2.2 mg/dl (1.8-2.4); Potassium 4.1 mmol/L (3.5-5.1); Total Protein 7.1 gm/dl (6.4-8.2)
[2019-10-05] MEDS: HEPARIN SOD 5,000 UNIT/0.5 ML VIAL SQ SCH (08:06)
[2019-10-05] MEDS: METOPROLOL TARTRATE 50 MG TAB PO SCH (08:06)
[2019-10-05] MEDS ORDERED: IOVERSOL 100ml IV PRN (08:22)
[2019-10-05 08:28] VITALS: TEMP 97.9
--- NOTE | 2019-10-05 08:42 | CT Scan Report ---
CT OF THE CHEST WITH IV CONTRAST CLINICAL HISTORY: Pulmonary nodule. COMPARISON STUDY: Chest radiographs March 01, 2019 and October 03, 2019. TECHNIQUE: Following IV administration of 94 mL of Optiray-320, helical axial images of the chest we re obtained. Sagittal and coronal reconstructions were viewed as well as maximal intensity projectio ns on an independent 3-D workstation. Automated exposure control was utilized for the study. A dose lowering technique was utilized adhering to the principles of ALARA. CT DOSE: 421.67 mGy.cm FINDINGS: A right PICC is in place. No enlarged axillary, mediastinal or hilar lymph nodes are prese nt. The size of the heart is normal. There is no pericardial effusion. There is no pneumomediastinum. No pneumothorax is present. Note is made of trace bilateral pleural effusions. There is associated s egmental atelectasis. There is no consolidation to suggest pneumonia. Moderate upper lobe predominant emphysema is noted. A 1.1 cm circumscribed left upper lobe nodule on image 155 of 291 corresponds to the nodule shown on radiographs of October 03, 2019. This contains a central calcification. This also li shena contains fat. No additional pulmonary nodules are present. Bony thorax and upper abdomen are unr emarkable. IMPRESSION: 1. 1.1 cm circumscribed left upper lobe solid nodule which corresponds to the nodule on chest radiogr aph of October 03, 2019. This contains a central calcification and probable fat. This nodule is low suspi cion and likely benign. A hamartoma is favored. A chest CT in one year to ensure stability is recomme nded. 2. Trace bilateral pleural effusions with associated segmental atelectasis. 3. Moderate emphysema. ACT 112: Negative or not required by law. Electronically signed by: Maurizio Wylie M.D. 10/05/2019 8:41 AM
[2019-10-05] MEDS: LITHIUM CARBONATE 300 MG TAB PO SCH (09:01)
[2019-10-05 12:09] VITALS: BP 114/74; PULSE 92
--- NOTE | 2019-10-05 12:51 | Discharge Summary ---
Date of Service October 05, 2019 Admission HPI Per Admitting Provider Manny Guido is a 39-year-old male with past medical history significant for previous suicide attempts with acetaminophen, hepatitis C from IV drug abuse; who presents to the emergency department from local correctional facility, following ingestion of 100 tablets of 500 mg Tylenol at about 1300 today (10/02), he did this in attempt to kill himself secondary to current family issues with an upcoming anniversary worsening his mood. Of note this is the second attempt at utilization of acetaminophen for an overdose, last time being February 2019, at that time he presented to the emergency department here at [facility] at that time he had acetaminophen level of 533 and was subsequently transferred to [facility] for observation. He states that he took no other medications in the last 24 hours in order to overdose, and no other recreational or nonmedical or illicit drugs, per Per guards from correctional facility patient alerted them of the attempted overdose approximately 1500 today, further discussions with his cellmate he did not take any other medications nor did the cellmate note that he had taken any acetaminophen. Since that time he has not had any nausea, vomiting, abdominal pain, diarrhea, changes in vision, changes in sensation of upper or lower extremities. After being evaluated in ED, became nauseated and vomited several times, complained of some mild abdominal tenderness Principal Diagnosis Intentional APAP Overdose, suicidal attempt Discharge Exam Constitutional WD/WN, vitals as above Eyes + anicteric sclerae Neck trachea midline, no thyromegaly Respiratory normal respiratory effort, lungs clear to auscultation Cardiovascular RRR, no murmur, no edema Chest (Breasts) Chest: normal inspection of chest Gastrointestinal (Abdomen) normal bowel sounds, soft, nontender, no hepatosplenomegaly Musculoskeletal Extremities: extremities normal to inspection; no cyanosis and no clubbing Skin no rashes, warm and dry Neurologic moves all extremities and awake; no focal motor deficits Psychiatric Orientation: alert, oriented x 3 and cooperative Eye Contact: good eye contact Speech: normal rate/rhythm/volume of speech Affect: + flat affect Mood: + depressed mood Lymphatic no lymphedema Discharge Data Allergies Allergy/AdvReac Type Severity Reaction Status Date / Time ceftriaxone [From Rocephin] Allergy Unknown Verified 10/03/19 18:58 Penicillins Allergy Unknown Verified 10/03/19 18:58 Sulfa (Sulfonamide Allergy Unknown Verified 10/03/19 18:58 Antibiotics) Consultations 10/03/19 19:01 ED Decision to Admit Stat Ordered Studies 10/05/19 08:00 CT chest w con Routine CXR Hospital Course (1) Intentional acetaminophen overdose: Manny Lora is a 39-year-old male with past medical history significant for previous suicide attempts with acetaminophen, hepatitis C from IV drug abuse; who presents to the emergency department from local correctional facility, following ingestion of 100 tablets of 500 mg Tylenol intentionally with intent to commit suicide. Started on NAC protocol and APAP level trended back to <2; LFTs remain mildly elevated but trending downward. INR 1.2, no evidence of significant liver dysfunction He is denying abd pain, no further N/V and is tolerating a diet - Acetaminophen level on admission 394 - continue one-to-one suicide check/precautions and will need [facility]-discussed case with [facility]STINA Carroll from [facility] who [facility] -stable for dc Poison control signed off on case as per RN report (2) HTN (hypertension), benign: stable -continue metoprolol (3) Major depressive disorder: continue lithium, continue olazapine , duloxetine -suspect Bipolar d/o f/u with Psych at [facility] (4) Abnormal chest xray: as above, pulm nodule and bibasilar patchy opacities-could be atelectasis or aspiration from vomiting but no fevers -no abx needed at this time -chest CT as below (5) Metabolic acidosis: On admission secondary to overdose and dehydration, now resolved (6) HERMES (acute kidney injury): Hand I Blocker up on admission secondary to volume depletion now improved back to normal (7) Hypokalemia: replaced and resolved (8) Pulmonary nodule: seen on CXR here -Rad recommends Chest CT-got this here which confirms LIANA 1.1cm possible hamartoma, probably benign -f/u CT chest in 1 year discussed results with patient (9) Nausea & vomiting: resolved secondary to overdose (10) Transaminitis: as above, improving, secondary to APAP overdose has chronic Hep C which may also be contributing ALT remains mildly elevated at 107 but all others normal (11) Hepatitis C: chronic treated with interferon in the past -f/u with PCP (12) DVT prophylaxis: heparin SQ Dispo- Dc [facility] to [facility] Total Time Total Time Spent Total Time Spent (In Minutes): 35 min Total Time Includes: Examination of the Patient, Discharge Planning, Medication Reconciliation and Communication With Other Providers (CELESTINA [facility] at [facility]) Discharge Plan Discharge Items Patient Disposition: [facility] Facility Reason For Visit: ACETAMINOPHEN OVERDOSE Discharge Diagnosis: Acetaminophen overdose, suicidal attempt Condition on Discharge: Good Activity: Resume your previous activity Non-emergency contact: Primary Care Provider and Psychiatrist Call non-emergency contact if: you have any medication questions and your symptoms worsen Follow-up/Referrals: Jonathan GARCIA [Primary Care Provider] - Diet: Regular Addtl Attending Provider Instructions: Please follow up with Psychiatry. Avoid access to Tylenol-containing products. Pending Studies at Discharge: No Stand-Alone Forms: My [email or web address], Suicide Prevention Resources Skilled Items Patient informed of condition?: Yes Discharge Level of Care: Other Communicable Disease: No Discharge Prognosis: Improving Lines: None Urinary Catheter: No Medications and DC Order Prescriptions: Continued metoprolol tartrate 50 mg Tablet 50 mg PO BID RF: 0 olanzapine 15 mg Tablet 15 mg PO HS RF: 0 duloxetine [Cymbalta] 30 mg Capsule,Delayed Release(Dr/Ec) 30 mg PO HS RF: 0 [place] Citrate 300mg/5ml 5 ml PO BID RF: 0 Discharge Orders: Discharge Order (Routine); Ordered 10/05/19 Ordered By: Kacey Starr Admission Data Admit Date/Time: 10/03/19 19:57 Attending Provider: Kacey Starr Admit Provider: Jenaro Craven Primary Care Provider: Jonathan GARCIA Other Providers: Howard Adames Coding Level of Care Code D/C Day Management >30 mins Diagnoses Intentional acetaminophen overdose T39.1X2A Encounter type: initial encounter HTN (hypertension), benign I10 Major depressive disorder F32.9 Abnormal chest xray R93.89 Metabolic acidosis E87.2 HERMES (acute kidney injury) N17.9 Hypokalemia E87.6 Pulmonary nodule R91.1 Nausea & vomiting R11.2 Transaminitis R74.0 Hepatitis C B19.20 Hepatic coma status: without hepatic coma Viral hepatitis chronicity: unspecified DVT prophylaxis Z29.9
== END 2019-10-05 14:05 | DRG 918 ==
LOC: ED 16:37 → SUATTDRO 19:57 → 1E 19:57